=== PATIENT | male | born 1935 | race Caucasian/White ===

== ENCOUNTER 2019-05-05 21:40 | Inpatient (IN) | payer MEDICARE, MEDICAID ==
[~2019-05-05] VITALS: Ht 172.7 cm; Wt 59.4 kg
[2019-05-05] MEDS ORDERED: FINA5TAB11 PO (22:00)
[2019-05-05] MEDS ORDERED: ACET-73 PO ×2 (22:00)
[2019-05-05] MEDS ORDERED: POLY17PO4 PO (22:00)
[2019-05-05] MEDS ORDERED: NITR100C11 PO (22:00)
[2019-05-05] MEDS ORDERED: PANT40TA4 PO (22:00)
[2019-05-05] MEDS ORDERED: DOCU100C36 PO (22:00)
[2019-05-05] MEDS ORDERED: TERA5CAP4 PO (22:00)
[2019-05-05 22:45] LABS: BASOPHILS % (AUTO) 0.8 % (0.0-2.0); EOSINOPHILS % (AUTO) 0.7 % (0.0-7.0); HEMATOCRIT 31.1 % (36.7-47.1); HEMOGLOBIN 10.3 g/dL (12.5-16.3); LYMPHOCYTES # (AUTO) 1.4 K/uL (20.0-40.0); LYMPHOCYTES % (AUTO) 41.9 % (20.5-51.5); MEAN CORPUSCULAR HEMOGLOBIN 32.2 uug (23.8-33.4); MEAN CORPUSCULAR HGB CONC 33 g/dL (32.5-36.3); MEAN CORPUSCULAR VOLUME 97.2 fL (73.0-96.2); MONOCYTES # (AUTO) 0.2 K/uL (2.0-10.0); MONOCYTES % (AUTO) 6.6 % (0.0-11.0); NEUTROPHILS # (AUTO) 1.6 K/uL (1.8-8.9); PLATELET COUNT (AUTO) 91 K/uL (152-348); WHITE BLOOD COUNT (AUTO) 3.2 K/uL (3.6-10.2)
[2019-05-05 22:52] LABS: ETHANOL < 3 MG/DL (0-0)
[2019-05-05 22:58] LABS: ACETAMINOPHEN < 2.0 ug/mL (10-30); ALANINE AMINOTRANSFERASE 18 U/L (16-63); ALKALINE PHOSPHATASE 85 U/L (50-136); ASPARTATE AMINOTRANSFERASE 17 U/L (15-37); BILIRUBIN,DIRECT 0.1 mg/dL (0.0-0.2); BILIRUBIN,TOTAL 0.2 mg/dL (0.2-1.0); CHLORIDE 111 mmol/L (98-107); CREATININE 0.9 mg/dL (0.6-1.3); GLUCOSE 140 mg/dL (74-106); POTASSIUM 3.7 mmol/L (3.5-5.1); TOTAL PROTEIN, SERUM 5.8 g/dL (6.4-8.2); UREA NITROGEN, BLOOD 18 mg/dL (7-18)
[2019-05-05 23:00] LABS: THYROID STIMULATING HORMONE 1.621 mIU/mL (0.358-3.740)
[2019-05-05 23:18] LABS: CARBON DIOXIDE 29 mmol/L (21-32)
[2019-05-06 00:17] LABS: *AMPHETAMINE, URINE NEGATIVE (NEGATIVE); *BARBITURATE, URINE NEGATIVE (NEGATIVE); *CANNABINOID, URINE NEGATIVE (NEGATIVE); *COCCAINE, URINE NEGATIVE (NEGATIVE); *OPIATE, URINE NEGATIVE (NEGATIVE); *PHENCYCLIDINE SCREEN,URINE NEGATIVE (NEGATIVE)
[2019-05-06 00:18] LABS: LYMPHOCYTES % (MANUAL) 41 % (20-40); MONOCYTES % (MANUAL) 7 % (2-10); NEUTROPHILS % (MANUAL) 52 % (42-75)
[2019-05-06 00:20] LABS: *BILIRUBIN,URIN NEGATIVE (NEGATIVE); *BLOOD, URINE NEGATIVE (NEGATIVE); *CLARITY,URINE CLEAR (CLEAR); *COLOR,URINE YELLOW (YELLOW); *KETONES,URINE NEGATIVE (NEGATIVE); *UROBILINOGEN,URINE 0.2 E.U./dl (NORMAL); LEUKOCYTE ESTERASE ,URINE NEGATIVE (NEGATIVE); NITRITE, URINE NEGATIVE (NEGATIVE); PH,URINE 6.5 (5.0-8.0); UGLUCOSE NEGATIVE (NEGATIVE)
[2019-05-06] MEDS ORDERED: MAG HYDROX/AL HYDROX/SIMETH 30 ML LIQUID UDC PO PRN (03:30)
[2019-05-06] MEDS ORDERED: MAGNESIUM HYDROXIDE 30 ML LIQUID UDC PO PRN (03:30)
[2019-05-06] MEDS ORDERED: CLONAZEPAM 0.5 MG TABLET PO PRN (03:30)
[2019-05-06] MEDS: ACETAMINOPHEN 325 MG TABLET PO PRN ×2 (05:49→20:22)
[2019-05-06 07:44] VITALS: BP 145/71
[2019-05-06] MEDS ORDERED: ACETAMINOPHEN ES 500 MG TABLET PO PRN (10:00)
[2019-05-06] MEDS: NITROFURANTOIN/NITROFURAN MAC 100 MG CAPSULE PO SCH ×2 (11:47→20:19)
[2019-05-06 16:29] VITALS: BP 160/74
[2019-05-06] MEDS: PANTOPRAZOLE SODIUM 40 MG TABLET.DR PO SCH (17:37)
[2019-05-06] MEDS: TERAZOSIN 5 MG CAPSULE PO SCH (20:19)
[2019-05-06] MEDS: DOCUSATE SODIUM 100 MG CAPSULE PO SCH (20:20)
[2019-05-06] MEDS: MIRTAZAPINE 15 MG TABLET PO SCH (20:20)
[2019-05-06] MEDS: QUETIAPINE FUMARATE 25 MG TABLET PO SCH (20:22)
[2019-05-06 21:18] VITALS: BP 156/78
[2019-05-07] MEDS: TEMAZEPAM 7.5 MG CAPSULE PO PRN ×2 (01:37→22:52)
[2019-05-07] MEDS: PANTOPRAZOLE SODIUM 40 MG TABLET.DR PO SCH ×2 (06:36→16:41)
[2019-05-07 07:30] VITALS: BP 144/64
[2019-05-07] MEDS: NITROFURANTOIN/NITROFURAN MAC 100 MG CAPSULE PO SCH ×2 (08:34→20:02)
[2019-05-07] MEDS: DOCUSATE SODIUM 100 MG CAPSULE PO SCH ×2 (08:34→20:02)
[2019-05-07] MEDS: MIRALAX 17 GM POWD.PACK PO SCH (08:36)
[2019-05-07] MEDS: FINASTERIDE 5 MG TABLET PO SCH (08:37)
[2019-05-07 16:00] VITALS: BP 131/49
[2019-05-07] MEDS: TERAZOSIN 5 MG CAPSULE PO SCH (20:01)
[2019-05-07] MEDS: MIRTAZAPINE 15 MG TABLET PO SCH (20:02)
[2019-05-07] MEDS: QUETIAPINE FUMARATE 25 MG TABLET PO SCH (20:04)
[2019-05-07 20:08] VITALS: BP 104/65
[2019-05-07 20:09] VITALS: BP 126/49
[2019-05-07] MEDS: ACETAMINOPHEN 325 MG TABLET PO PRN (22:52)
[2019-05-08] MEDS: PANTOPRAZOLE SODIUM 40 MG TABLET.DR PO SCH ×2 (06:11→16:59)
[2019-05-08 06:53] LABS: BASOPHILS % (AUTO) 0.7 % (0.0-2.0); EOSINOPHILS # (AUTO) 0.1 K/uL (0.0-0.7); EOSINOPHILS % (AUTO) 1.6 % (0.0-7.0); HEMATOCRIT 33.8 % (36.7-47.1); HEMOGLOBIN 11.2 g/dL (12.5-16.3); LYMPHOCYTES # (AUTO) 1.4 K/uL (20.0-40.0); LYMPHOCYTES % (AUTO) 37.7 % (20.5-51.5); MEAN CORPUSCULAR HEMOGLOBIN 32.3 uug (23.8-33.4); MEAN CORPUSCULAR HGB CONC 33 g/dL (32.5-36.3); MEAN CORPUSCULAR VOLUME 97.6 fL (73.0-96.2); MONOCYTES # (AUTO) 0.3 K/uL (2.0-10.0); MONOCYTES % (AUTO) 7.1 % (0.0-11.0); NEUTROPHILS % (AUTO) 52.9 % (38.5-71.5); PLATELET COUNT (AUTO) 102 K/uL (152-348); RED BLOOD CELL COUNT(AUTO) 3.46 MIL/uL (4.06-5.63); WHITE BLOOD COUNT (AUTO) 3.8 K/uL (3.6-10.2)
[2019-05-08 08:01] VITALS: BP 152/65
[2019-05-08] MEDS: NITROFURANTOIN/NITROFURAN MAC 100 MG CAPSULE PO SCH ×2 (09:00→20:55)
[2019-05-08] MEDS: DOCUSATE SODIUM 100 MG CAPSULE PO SCH ×2 (09:00→20:55)
[2019-05-08] MEDS: MIRALAX 17 GM POWD.PACK PO SCH (09:00)
[2019-05-08] MEDS: FINASTERIDE 5 MG TABLET PO SCH (09:01)
[2019-05-08 15:51] VITALS: BP 132/70
[2019-05-08 20:12] VITALS: BP 150/72
[2019-05-08] MEDS: QUETIAPINE FUMARATE 25 MG TABLET PO SCH (20:55)
[2019-05-08] MEDS: MIRTAZAPINE 15 MG TABLET PO SCH (20:56)
[2019-05-08] MEDS: TERAZOSIN 5 MG CAPSULE PO SCH (20:56)
[2019-05-08] MEDS: TEMAZEPAM 7.5 MG CAPSULE PO PRN (23:49)
[2019-05-09] MEDS: PANTOPRAZOLE SODIUM 40 MG TABLET.DR PO SCH ×2 (06:39→16:05)
[2019-05-09 07:30] VITALS: BP 168/84
[2019-05-09] MEDS: FINASTERIDE 5 MG TABLET PO SCH (08:23)
[2019-05-09] MEDS: DOCUSATE SODIUM 100 MG CAPSULE PO SCH ×2 (08:23→20:55)
[2019-05-09] MEDS: MIRALAX 17 GM POWD.PACK PO SCH (08:23)
[2019-05-09 17:04] VITALS: BP 141/58
[2019-05-09 20:00] VITALS: BP 121/52
[2019-05-09] MEDS: TERAZOSIN 5 MG CAPSULE PO SCH (20:59)
[2019-05-09] MEDS: MIRTAZAPINE 15 MG TABLET PO SCH (21:00)
[2019-05-09] MEDS: QUETIAPINE FUMARATE 25 MG TABLET PO SCH (21:00)
[2019-05-10] MEDS: ACETAMINOPHEN 325 MG TABLET PO PRN (05:54)
[2019-05-10] MEDS: PANTOPRAZOLE SODIUM 40 MG TABLET.DR PO SCH ×2 (06:22→17:44)
[2019-05-10 07:30] VITALS: BP 156/72
[2019-05-10] MEDS: DOCUSATE SODIUM 100 MG CAPSULE PO SCH ×2 (09:04→20:15)
[2019-05-10] MEDS: FINASTERIDE 5 MG TABLET PO SCH (09:04)
[2019-05-10] MEDS: MIRALAX 17 GM POWD.PACK PO SCH (09:04)
[2019-05-10 16:20] VITALS: BP 162/80
[2019-05-10 20:00] VITALS: BP 158/69
[2019-05-10] MEDS: MIRTAZAPINE 15 MG TABLET PO SCH (20:15)
[2019-05-10] MEDS: TERAZOSIN 5 MG CAPSULE PO SCH (20:16)
[2019-05-10] MEDS: QUETIAPINE FUMARATE 25 MG TABLET PO SCH (20:16)
[2019-05-10] MEDS: TEMAZEPAM 7.5 MG CAPSULE PO PRN (23:21)
[2019-05-11] MEDS: PANTOPRAZOLE SODIUM 40 MG TABLET.DR PO SCH ×2 (06:43→17:19)
[2019-05-11 08:06] VITALS: BP 143/80
[2019-05-11] MEDS: MIRALAX 17 GM POWD.PACK PO SCH (08:25)
[2019-05-11] MEDS: FINASTERIDE 5 MG TABLET PO SCH (08:25)
[2019-05-11] MEDS: DOCUSATE SODIUM 100 MG CAPSULE PO SCH ×2 (09:41→21:16)
[2019-05-11 15:15] VITALS: BP 106/56
[2019-05-11 20:15] VITALS: BP 119/51
[2019-05-11] MEDS: MIRTAZAPINE 15 MG TABLET PO SCH (21:17)
[2019-05-11] MEDS: TERAZOSIN 5 MG CAPSULE PO SCH (21:17)
[2019-05-11] MEDS: QUETIAPINE FUMARATE 25 MG TABLET PO SCH (21:18)
[2019-05-12] MEDS: PANTOPRAZOLE SODIUM 40 MG TABLET.DR PO SCH (06:06)
[2019-05-12] MEDS: MIRALAX 17 GM POWD.PACK PO SCH (08:22)
[2019-05-12] MEDS: DOCUSATE SODIUM 100 MG CAPSULE PO SCH (08:23)
[2019-05-12] MEDS: ACETAMINOPHEN 325 MG TABLET PO PRN (08:23)
[2019-05-12] MEDS: FINASTERIDE 5 MG TABLET PO SCH (08:23)
[2019-05-12 09:43] VITALS: BP 155/70
== END 2019-05-12 15:28 | DRG 885 ==
LOC: ER 21:40 → GPS 05-06 02:25
PROVIDERS: ADMIT Psychiatry & Neurology Psychiatry; ATTEND Student in an Organized Health Care Education/Training Program
DX: F33.3 Major depressive disorder, recurrent, severe with psychotic symptoms (principal); D61.818 Other pancytopenia; F03.91 Unspecified dementia, unspecified severity, with behavioral disturbance; N39.0 Urinary tract infection, site not specified; E44.1 Mild protein-calorie malnutrition; G93.40 Encephalopathy, unspecified; I11.9 Hypertensive heart disease without heart failure; K21.9 Gastro-esophageal reflux disease without esophagitis; F41.9 Anxiety disorder, unspecified; Q27.33 Arteriovenous malformation of digestive system vessel
CPT/HCPCS: 36415; 70030-TC; 70450; 71045; 80307; 83605; 84443; 85025; 85730; 87040; 87086; 93005; A4663; G0480; G0480-TC